=== PATIENT | male | born 1955 | race Two or more races ===

== ENCOUNTER 2023-10-18 21:34 | Emergency (ER) | payer OTHER, MEDICAID ==
[~2023-10-18] VITALS: Ht 172.7 cm; Wt 77.1 kg
[2023-10-18] MEDS ORDERED: FAMOTIDINE 20 MG TABLET PO ONE (21:45)
[2023-10-18] MEDS ORDERED: FAMOTIDINE 20 MG TABLET ONE (21:57)
[2023-10-18 22:06] LABS: BASOPHILS % (AUTO) 0.3 % (0.0-2.0); EOSINOPHILS # (AUTO) 0.3 K/uL (0.0-0.7); HEMATOCRIT 41.1 % (36.7-47.1); HEMOGLOBIN 13.9 g/dL (12.5-16.3); LYMPHOCYTES % (AUTO) 30.6 % (20.5-51.5); MEAN CORPUSCULAR HEMOGLOBIN 30.3 uug (23.8-33.4); MEAN CORPUSCULAR HGB CONC 34 g/dL (32.5-36.3); MEAN CORPUSCULAR VOLUME 89.9 fL (73.0-96.2); MONOCYTES # (AUTO) 0.8 K/uL (0.1-1.30); MONOCYTES % (AUTO) 11.6 % (0.0-11.0); NEUTROPHILS # (AUTO) 3.6 K/uL (1.8-8.9); NEUTROPHILS % (AUTO) 53.5 % (38.5-71.5); PLATELET COUNT (AUTO) 283 K/uL (152-348); RED BLOOD CELL COUNT(AUTO) 4.58 MIL/uL (4.06-5.63); RED CELL DISTRIBUTION WIDTH 13.2 % (12.1-16.2); WHITE BLOOD COUNT (AUTO) 6.7 K/uL (3.6-10.2)
[2023-10-18 22:08] LABS: DIFFERENTIAL COMMENT 1
[2023-10-18 22:21] LABS: CALCIUM 9.2 mg/dL (8.5-10.1); POTASSIUM 3.9 mmol/L (3.5-5.1)
[2023-10-18 22:28] LABS: ALBUMIN 3.7 g/dL (3.4-5.0); BILIRUBIN,TOTAL 0.2 mg/dL (0.2-1.0); TOTAL PROTEIN, SERUM 7.4 g/dL (6.4-8.2)
[2023-10-18] MEDS ORDERED: FAMO-132 PO (23:06)
[2023-10-18 23:18] VITALS: BP 142/81; TEMP 98.2; O2SAT 97
== END 2023-10-18 23:19 | disposition home or self-care (01) ==
LOC: ER 21:36
DX: R07.89 Other chest pain (principal); Z79.899 Other long term (current) drug therapy
CPT/HCPCS: 99285; 71045; 80053; 83690; 83735; 85025; 84484; 36415; 93005; J7040; A4606; A4663